=== PATIENT | female | born 1970 ===

== ENCOUNTER 2017-02-22 09:58 | Emergency (ER) | payer BC ==
[2017-02-22 09:59] VITALS: BMI 26.2
[2017-02-22 10:17] VITALS: BP 119/80; PULSE 83; RESP 17; TEMP 97; O2SAT 97
--- NOTE | 2017-02-22 11:15 | ED PDOC ---
Upper Extremity Pain/Injury Time Seen by Provider: 02/22/17 10:34 Chief Complaint (Nursing): Upper Extremity Problem/Injury Chief Complaint (Provider): Left shoulder pain x 3 days, gradual History Per: Patient History/Exam Limitations: no limitations Onset/Duration Of Symptoms: Days Current Symptoms Are (Timing): Still Present Quality: Dull Severity: Moderate Pain Scale Rating Of: 7 Torso/Front (Pic): 1 - Tenderness Additional Complaint(s): Pt states she was holding her 6 month old, 20 pound grandson over the weekend and gradually began to have pain. Pt states that she has similar in the right shoulder a few years ago when her other grandchild was young. PT reports pain upper arm and pain with movement. Pt has been taking aleve, last taken last night. Past Medical History Reviewed: Historical Data, Nursing Documentation, Vital Signs Vital Signs: Last Vital Signs Temp 97 F L 02/22/17 10:11 Pulse 83 02/22/17 10:11 Resp 17 02/22/17 10:11 BP 119/80 02/22/17 10:11 Pulse Ox 97 02/22/17 10:11 - Medical History PMH: Anemia - Surgical History Surgical History: No Surg Hx - Family History Family History: States: No Known Family Hx - Living Arrangements Living Arrangements: With Family - Social History Current smoker - smoking cessation education provided: No Alcohol: None Drugs: Denies - Immunization History Hx Tetanus Toxoid Vaccination: No Hx Influenza Vaccination: No Hx Pneumococcal Vaccination: No - Home Medications Home Medications: Ambulatory Orders Medication Instructions Recorded traMADol [Ultram] 50 mg PO Q6H PRN #20 tab 02/22/17 - Allergies Allergies/Adverse Reactions: Allergies Allergy/AdvReac Type Severity Reaction Status Date / Time No Known Allergies Allergy Verified 06/30/16 11:45 Review of Systems ROS Statement: Except As Marked, All Systems Reviewed And Found Negative Constitutional: Negative for: Fever, Chills Cardiovascular: Negative for: Chest Pain Musculoskeletal: Positive for: Shoulder Pain (Left shoulder pain, non-traumatic ) Physical Exam - Reviewed Nursing Documentation Reviewed: Yes Vital Signs Reviewed: Yes - Physical Exam Appears: Positive for: Well, Non-toxic, No Acute Distress Head Exam: Positive for: ATRAUMATIC, NORMAL INSPECTION, NORMOCEPHALIC Skin: Positive for: Normal Color, Warm, DRY Eye Exam: Positive for: Normal appearance ENT: Positive for: Normal ENT Inspection Neck: Positive for: Normal, Painless ROM Cardiovascular/Chest: Positive for: Regular Rate, Rhythm Respiratory: Positive for: Normal Breath Sounds. Negative for: Accessory Muscle Use, Respiratory Distress Pulses-Radial (L): 2+ Pulses-Radial (R): 2+ Back: Positive for: Normal Inspection Extremity: Positive for: Tenderness (Tendon insertion anterior humerus ). Negative for: Normal ROM (Decreased shoulder abduction due to pain, slightly improved passive ROM ), Deformity, Swelling Neurologic/Psych: Positive for: Alert, Oriented - ECG O2 Sat by Pulse Oximetry: 97 Disposition - Clinical Impression Clinical Impression: Calcifying tendinitis of left shoulder - Patient ED Disposition Is Patient to be Admitted: No Counseled Patient/Family Regarding: Diagnosis, Need For Followup, Rx Given - Disposition Referrals: Cady Rdz MD [Staff Provider] - Disposition: Routine/Home Disposition Time: 12:39 Condition: GOOD Prescriptions: traMADol [Ultram] 50 mg PO Q6H PRN #20 tab PRN Reason: Pain Instructions: Calcific Tendinitis (ED) Forms: [facility] ([place])
--- NOTE | 2017-02-22 13:18 | RAD ---
PROCEDURE: Radiographs of the Left Shoulder HISTORY: Shoulder pain, gradual x 3 days COMPARISON: No prior. FINDINGS: BONES: There is no acute displaced fracture or bone destruction. Bone alignment and mineralization are normal JOINTS: Normal. Glenohumeral and acromioclavicular joints preserved. No osteoarthritis. SOFT TISSUES: There are multifocal lobular calcifications superior lateral to the humeral head. OTHER FINDINGS: None. IMPRESSION: Calcific tendinitis.
--- NOTE | 2017-02-22 17:20 | CARD ---
APPROVED REPORT EKG Measurement Heart [id number] <Conclusion> Normal sinus rhythm Normal ECG
== END 2017-02-22 15:27 | disposition home or self-care (01) ==
LOC: H.ER 09:58
DX: M75.32 Calcific tendinitis of left shoulder (principal)
CPT/HCPCS: 73030; 93005; 96372; 99282; J1885